=== PATIENT | female | born 1950 | race Two or more races ===

== ENCOUNTER 2025-01-10 02:55 | Inpatient (IN) | payer OTHER, MEDICAID ==
[~2025-01-10] VITALS: Ht 162.6 cm; Wt 87.1 kg
[2025-01-10 03:15] VITALS: PULSE 72; RESP 16; O2SAT 96
[2025-01-10] MEDS: MECLIZINE HCL 25 MG TAB PO ONE (03:43)
--- NOTE | 2025-01-10 03:49 | ED.PDOC ---
HPI (NEURO) HPI Comments 74-year-old female with a history of hypertension and hypercholesterolemia and cigarette smoking now complains of dizziness worse with trying to stand up. This started a couple of days ago. Patient is feeling unsteady on her feet at home in his worried she might fall. Chief Complaint: Dizziness Time Seen by MD: 03:08 Reviewed Notes: Nurses Notes Information Source: Patient Mode of Arrival: EMS Severity: Moderate, Severe Dizziness/Weakness Severity: Unable to do activities Timing: Days Duration: Since onset Past Medical History PAST MEDICAL HISTORY: HTN Surgical History: Denies all surgeries Social History Smoker: Cigarettes Constitutional: reports: malaise, weakness Neurological: reports: dizziness All Other Systems: Reviewed and Negative Physical Exam General Appearance: Moderate Distress HEENT: Normal ENT Inspection, Pharynx Normal, TMs Normal Neck: Full Range of Motion, Non-Tender, Normal, Normal Inspection Respiratory: Chest Non-Tender, Lungs Clear, No Accessory Muscle Use, No Resp iratory Distress, Normal Breath Sounds Cardiovascular: No Edema, No JVD, No Murmur, No Gallop, Normal Peripheral Pulses, Regular Rate/Rhythm Breast Exam: Deferred Gastrointestinal: No Organomegaly, Non Tender, No Pulsatile Mass, Normal Bowel Sounds, Soft Genitalia: Deferred Pelvic: Deferred Rectal: Deferred Extremities: No calf tenderness, Normal capillary refill, Normal inspection, Normal range of motion, Non-tender, No pedal edema Musculoskeletal : Apperance: Normal Neurologic: Alert, education adviser II-XII nml as Tested, No Motor Deficits, Normal Affect, Normal Mood, No Sensory Deficits Cerebellar Function: Normal Reflexes: Normal Skin: Dry, Normal Color, Warm Lymphatic: No Adenopathy Was a procedure done? Was a procedure done?: No Differential Diagnosis (SZ) Seizure: Alcohol Withdrawl, Closed Head Injury, CVA/TIA, Drug Ingestion, Hypoglycemia, Hyponatremia, Idiopathic, Mass Lesion, Syncope, Encephalopathy, Other X-Ray, Labs, Meds, VS Vital Signs Date Time Temp Pulse Resp B/P (MAP) Pulse Ox O2 Delivery O2 Flow Rate FiO2 01/10/25 03:15 97.8 72 16 165/85 (111) 96 97.8 01/10/25 03:15 72 16 96 Room Air* 0 21 01/10/25 03:11 97.3 77 18 157/75 96 97.3 8/19/25 03:03 75 Lab Test 01/10/25 03:26 Range/Units White Blood Count 10.2 4.4-10.8 10^3/uL Red Blood Count 5.10 4.0-5.20 10^6/uL Hemoglobin 14.1 12.2-16.2 g/dL Hematocrit 41.5 36.0-46.0 % Mean Corpuscular Volume 81.3 80.0-100.0 fL Mean Corpuscular Hemoglobin 27.6 L 28.0-32.0 pg Mean Corpuscular Hemoglobin Concent 33.9 32.0-36.0 g/dL Red Cell Distribution Width 16.2 H 11.8-14.3 % Platelet Count 318 140-450 10^3/uL Mean Platelet Volume 10.0 6.9-10.8 fL Neutrophils (%) (Auto) 61.3 37.0-80.0 % Lymphocytes (%) (Auto) 26.2 10.0-50.0 % Monocytes (%) (Auto) 9.0 0.0-12.0 % Eosinophils (%) (Auto) 2.6 0.0-7.0 % Basophils (%) (Auto) 0.9 0.0-2.0 % Neutrophils # (Auto) 6.2 1.6-8.6 10 ^3/uL Lymphocytes # (Auto) 2.7 0.4-5.4 10 ^3/uL Monocytes # (Auto) 0.9 0-1.3 10 ^3/uL Eosinophils # (Auto) 0.3 0-0.8 10 ^3/uL Basophils # (Auto) 0.1 0-0.2 10 ^3/uL Nucleated Red Blood Cells 0.0 % Sodium Level 140 136-145 mmol/L Potassium Level 3.9 3.5-5.1 mmol/L Chloride Level 107 98-107 mmol/L Carbon Dioxide Level 24 20-31 mmol/L Anion Gap 9 5-15 Blood Urea Nitrogen 20 9-23 mg/dL Creatinine 1.32 H 0.550-1.02 mg/dL Glomerular Filtration Rate Calc 43 >90 mL/min BUN/Creatinine Ratio 15.2 10.0-20.0 Serum Glucose 112 H 74-106 mg/dL Calcium Level 9.6 8.7-10.4 mg/dL Magnesium Level 2.2 1.6-2.6 mg/dL Total Bilirubin 0.3 0.2-1.0 mg/dL Aspartate Amino Transferase (AST) 19 13-40 U/L Alanine Aminotransferase (ALT) 15 7-40 U/L Alkaline Phosphatase 150 H 46-116 U/L Troponin I High Sensitivity < 3 L </=34 ng/L Total Protein 6.9 5.7-8.2 g/dL Albumin 4.4 3.2-4.8 g/dL Current Medications Medications (Trade) Dose Ordered Sig/Digna Route Start Time Stop Time Status Last Admin Meclizine HCl (Antivert Tablet) 25 mg ONCE ONCE PO 01/10/25 03:30 01/10/25 03:31 DC 01/10/25 03:43 Time of 1ST Reevaluation: 02:40 Reevaluation 1ST: Unchanged Patient Education/Counseling: Diagnosis, Treatment Family Education/Counseling: No Family Present Departure 1 Departure Time of Disposition: 04:30 Impression: Primary Impression: Vertigo Additional Impression: Acute renal injury Disposition: ADMITTED INPATIENT Condition: Guarded Comments Lab results reviewed. Patient has acute renal injury with creatinine elevated at 1.32. Troponin is normal at less than 3. Patient is still feels unsteady on her feet and dizzy on re-evaluation. Patient will need to be admitted for vertigo and acute renal injury. Critical Care Note Critical Care Time?: Yes (35 min-critical care time only) Critical care comment: Total critical care time: Approximately 36 minutes Due to a high probability of clinically significant, life threatening deterioration, the patient required my highest level of preparedness to intervene emergently and I personally spent this critical care time directly and personally managing the patient. This critical care time included obtaining a history; examining the patient; pulse oximetry; ordering and review of studies; arranging urgent treatment with development of a management plan; evaluation of patient's response to treatment; frequent reassessment; and, discussions with o ther providers. This critical care time was performed to assess and manage the high probability of imminent, life-threatening deterioration that could result in multi-organ failure. It was exclusive of separately billable procedures and treating other patients. Stability Stability form required: No Heart Score Heart Score: Heart Score Response (Comments) Value History Slightly Suspicious 0 EKG Repolarization Disturb 1 Age >65 2 Risk Factors 1 or 2 risk factors 1 Troponin Normal limit 0 Total 4 ZAAFR CARPENTER MD Jan 10, 2025 03:49
--- NOTE | 2025-01-10 03:51 | DVH ---
Indication: vertigo Comparison: None Technique: Utilizing a multislice CT scanner, a CT scan of the brain was performed without intravenou s contrast. Coronal and sagittal reformatted images. All CT scans at this facility use dose modulation, iterative reconstruction, and/or weight based dosi ng when appropriate to reduce radiation dose to as low as reasonably achievable. Findings: There is no acute infarct, intracranial hemorrhage, or mass effect. There is no hydrocephalus or sign ificant midline shift. There is mild chronic microvascular ischemic changes and mild parenchymal volume loss. No acute, depressed calvarial fractures. No large scalp hematomas. Impression: 1. No acute intracranial process.
[2025-01-10 03:57] LABS: Hematocrit 41.5 % (36.0-46.0); Hemoglobin 14.1 g/dL (12.2-16.2); Mean Corpuscular Hemoglobin 27.6 pg (28.0-32.0); Mean Corpuscular Volume 81.3 fL (80.0-100.0); Nucleated Red Blood Cells % 0.0 %
[2025-01-10 04:01] LABS: Alanine Aminotransferase 15 U/L (7-40); Albumin 4.4 g/dL (3.2-4.8); Anion Gap 9 (5-15); BUN/Creatinine Ratio 15.2 (10.0-20.0); Bilirubin, Total 0.3 mg/dL (0.2-1.0); Blood Urea Nitrogen 20 mg/dL (9-23); Calcium 9.6 mg/dL (8.7-10.4); Carbon Dioxide 24 mmol/L (20-31); Magnesium 2.2 mg/dL (1.6-2.6); Potassium 3.9 mmol/L (3.5-5.1); Sodium 140 mmol/L (136-145); Total Protein 6.9 g/dL (5.7-8.2)
[2025-01-10 04:06] LABS: Alkaline Phosphatase 150 U/L (46-116); Chloride 107 mmol/L (98-107); Glucose 112 mg/dL (74-106)
--- NOTE | 2025-01-10 05:38 | ECG ---
[facility] Test Date: 2025-01-10 Test Time: 03:03:36 Pat Name: ASTRID BARGER Department: [facility] ED Patient ID: [id number] Room: [facility]6T Gender: F Teen Counselor: ALLIE : 1950 Requested By: ZAFAR CARPENTER Order Number: [id number] Reading MD: Chi Barr Measurements Intervals [place] Rate: 75 P: 64 TX: 199 QRS: 74 QRSD: 91 T: 53 QT: 384 QTc: 429 Interpretive Statements Sinus rhythm Electronically Signed On 01-10-2025 22:59:43 PDT by Chi Barr Please click the below link to view image of tracing.
[2025-01-10 07:20] VITALS: PULSE 66; RESP 16; O2SAT 97
[2025-01-10] MEDS ORDERED: MECLIZINE HCL 25 MG TAB PO PRN (07:30)
[2025-01-10] MEDS ORDERED: DOCUSATE SOD 100 MG CAP PO PRN (07:30)
[2025-01-10] MEDS ORDERED: MORPHINE SULFATE INJ 2 MG/ml SYRG IV PRN (07:30)
[2025-01-10] MEDS ORDERED: NITROGLYCERIN 0.4 MG SL TAB SL PRN (07:30)
[2025-01-10] MEDS ORDERED: ONDANSETRON HCL 4 MG/2 ML VIAL IV PRN (07:30)
[2025-01-10] MEDS ORDERED: ACETAMINOPHEN 325 MG TAB PO PRN (07:30)
--- NOTE | 2025-01-10 07:33 | DVHHP2 ---
History of Present Illness Reason for Visit: Dizziness History of Present Illness Faiza Fuentes is a 74-year-old female with past medical history hypertension, and hyperlipidemia, who came to the hospital for dizziness. Patient states she has been experiencing intermittent dizziness for about 1 week. She states it started last Thursday, and that it was mild and intermittent. She was able to continue with daily life at first. Her symptoms have progressed and worsened over last few days. Last night it became so severe she was not able to walk around her house prompting her to come to the hospital. Review of Systems Constitutional: No: Fever, Chills, Sweats, Weakness, Malaise, Other Eyes: No: Pain, Vision change, Conjunctivae inflammation, Eyelid inflammation, Other, Redness ENT: No: Ear pain, Ear discharge, Nose pain, Nose discharge, Nose congestion, Mouth pain, Mouth swelling, Throat pain, Throat swelling, Other Respiratory: No: Cough, Dry, Shortness of breath, SOB with excertion, Wheezing, Hemoptysis, Pleuritic Pain, Sputum, Wheezing, Other Cardiovascular: No: Chest Pain, Palpitations, Orthopnea, Paroxysmal Noc. Dyspnea, Edema, Lt Headedness, Other Gastrointestinal: No: Nausea, Vomiting, Abdominal Pain, Diarrhea, Constipation, Melena, Hematochezia, Other Genitourinary: No Dysuria, No Frequency, No Incontinence, No Hematuria, No Retention, No Other Musculoskeletal: No: other, neck pain, shoulder pain, arm pain, back pain, hand pain, leg pain, foot pain Skin: No: Rash, Lesions, Jaundice, Bruising, Other Neurological: Other (Dizziness); No: Weakness, Numbness, Incoordination, Change in speech, Confusion, Seizures Allergies: Coded Allergies: NO KNOWN ALLERGIES (Unverified , 01/10/25) Exam Vital Signs Vital Signs Date Time Temp Pulse Resp B/P (MAP) Pulse Ox O2 Delivery O2 Flow Rate FiO2 01/10/25 06:26 68 22 140/72 (94) 95 01/10/25 03:15 97.8 97.8 01/10/25 03:15 Room Air* 0 21 General Appearance: Alert, Oriented X3, Cooperative, mild distress HEENT: Atraumatic Respiratory: Clear to auscultation, Normal air movement Cardiovascular: Regular rate, Normal S1, Normal S2, No murmurs Abdominal: Normal bowel sounds, Soft, No tenderness, No hepatospenomegaly Extremities: No clubbing, No cyanosis, No edema, Normal pulses Skin: No rashes, No breakdown, No significant lesion Neuro: Normal gait, Normal speech, Strength at 5/5 X4 ext, Normal tone Psych/Mental Status: Mental status NL, Mood NL Labs/Xrays Labs Test 01/10/25 06:25 01/10/25 03:26 Range/Units Troponin I High Sensitivity 3 L </=34 ng/L White Blood Count 10.2 4.4-10.8 10^3/uL Red Blood Count 5.10 4.0-5.20 10^6/uL Hemoglobin 14.1 12.2-16.2 g/dL Hematocrit 41.5 36.0-46.0 % Mean Corpuscular Volume 81.3 80.0-100.0 fL Mean Corpuscular Hemoglobin 27.6 L 28.0-32.0 pg Mean Corpuscular Hemoglobin Concent 33.9 32.0-36.0 g/dL Red Cell Distribution Width 16.2 H 11.8-14.3 % Platelet Count 318 140-450 10^3/uL Mean Platelet Volume 10.0 6.9-10.8 fL Neutrophils (%) (Auto) 61.3 37.0-80.0 % Lymphocytes (%) (Auto) 26.2 10.0-50.0 % Monocytes (%) (Auto) 9.0 0.0-12.0 % Eosinophils (%) (Auto) 2.6 0.0-7.0 % Basophils (%) (Auto) 0.9 0.0-2.0 % Neutrophils # (Auto) 6.2 1.6-8.6 10 ^3/uL Lymphocytes # (Auto) 2.7 0.4-5.4 10 ^3/uL Monocytes # (Auto) 0.9 0-1.3 10 ^3/uL Eosinophils # (Auto) 0.3 0-0.8 10 ^3/uL Basophils # (Auto) 0.1 0-0.2 10 ^3/uL Nucleated Red Blood Cells 0.0 % Sodium Level 140 136-145 mmol/L Potassium Level 3.9 3.5-5.1 mmol/L Chloride Level 107 98-107 mmol/L Carbon Dioxide Level 24 20-31 mmol/L Anion Gap 9 5-15 Blood Urea Nitrogen 20 9-23 mg/dL Creatinine 1.32 H 0.550-1.02 mg/dL Glomerular Filtration Rate Calc 43 >90 mL/min BUN/Creatinine Ratio 15.2 10.0-20.0 Serum Glucose 112 H 74-106 mg/dL Calcium Level 9.6 8.7-10.4 mg/dL Magnesium Level 2.2 1.6-2.6 mg/dL Total Bilirubin 0.3 0.2-1.0 mg/dL Aspartate Amino Transferase (AST) 19 13-40 U/L Alanine Aminotransferase (ALT) 15 7-40 U/L Alkaline Phosphatase 150 H 46-116 U/L Total Protein 6.9 5.7-8.2 g/dL Albumin 4.4 3.2-4.8 g/dL CT scan of the brain was performed without intravenous contrast. Findings: There is no acute infarct, intracranial hemorrhage, or mass effect. There is no hydrocephalus or significant midline shift. There is mild chronic microvascular ischemic changes and mild parenchymal volume loss. No acute, depressed calvarial fractures. No large scalp hematomas. Impression: 1. No acute intracranial process. SEPSIS Sepsis Screen Date sepsis recognized/suspect: Jan 10, 2025 Time Sepsis recognized/suspect: 033 Recent Procedure: No On Antibiotic Therapy: No Respiratory Rate >20: No Heart Rate >90: No Temp<36 C (96.8 F) or >38.3 C: No SBP <90 or MAP <65 mmHG: No New Acute Mental Status Change: No Is the patient on CPAP, BIPAP,: No Physician Orders Head Without Contrast (01/10/25 03:19) Vital Signs Date Time Temp Pulse Resp B/P (MAP) Pulse Ox O2 Delivery O2 Flow Rate FiO2 01/10/25 06:26 68 22 140/72 (94) 95 01/10/25 05:00 72 14 130/68 (88) 93 01/10/25 03:15 97.8 72 16 165/85 (111) 96 97.8 01/10/25 03:15 72 16 96 Room Air* 0 21 01/10/25 03:11 97.3 77 18 157/75 96 97.3 01/10/25 03:03 75 Laboratory Tests Test 01/10/25 03:26 White Blood Count 10.2 10^3/uL (4.4-10.8) Medications Medications Dose Ordered Sig/Digna Route Start Time Stop Time Status Last Admin Dose Admin Meclizine HCl 25 mg ONCE ONCE PO 01/10/25 03:30 01/10/25 03:31 DC 01/10/25 03:43 25 MG Assessment/Plan Assessment/Plan Assessment: Vertigo, Acute kidney injury, Dehydration, Hypertension, Hyperlipidemia, Plan: Admit to Tele, Neurology consult, IV hydration, PRN meclizine, TSH, Home mediations reconciled, Plan discussed with: Patient Date of Service: Jan 10, 2025 Billing Provider: GOMEZ BOLTON Common Visit Codes: [id number] INP/OBS CARE (MOD) GOMEZ BOLTON Jan 10, 2025 07:32
[2025-01-10] MEDS: SODIUM CHLORIDE 0.9% 1,000 ML IV ONE (08:05)
[2025-01-10 12:00] VITALS: PULSE 66; PULSE 74; RESP 16; O2SAT 97
--- NOTE | 2025-01-10 19:50 | DVHINCON2 ---
Date of service: Jan 10, 2025 Referring Physician Perla Reason for Consultation Dizziness History of Present Illness Ms. Fuentes is a 74 years old right-handed female with a history of hypertension, diabetes, dyslipidemia, chronic low back pain, obesity, she came to the [facility] on 01/10/2025 with a chief complaint of dizziness, at that time, she is alert and fully oriented, she provided the following history On 01/04/25, 01/05/2025, she has a spells of intense dizziness where since moving around her, with a feeling of falling down, unsteadiness. Again since 02/09/2025, she has similar event. This event happened when she is walking without head movement, or when she is getting out of bed. She denies similar problems previously, she has no associated hearing change, focal weakness nu mbness Coincidentally after the fall in 2022, she has constant intense stabbing pain in the low back, at times the pain radiated to the back of the right lower extremity to it reach the cup. She had MRI scan which showed disc disease, she had chiropractic treatment previously CC/HB/PLT/MCV, 01/10/2025: 10.06/1420/318/81.3 BUN/CR, 01/10/25: 20/1.32 [employer], 01/10/2025: 43 TSH, 01/10/25: 0.26 CT head, 01/10/25: No acute intracranial process Past Medical History Hypertension, dyslipidemia, diabetes, chronic low back pain Past Surgical History Family History Hypertension, diabetes, longevity Social History She smokes, but she denies a history of drug or alcohol abuse Allergies: Coded Allergies: NO KNOWN ALLERGIES (Unverified , 01/10/25) Current Medications Current Medications Medications (Trade) Dose Ordered Sig/Digna Route PRN Reason Start Time Stop Time Status Last Admin Acetaminophen/ Hydrocodone Bitart (Marne 5/325MG Tab) 1 tab Q4HP PRN PO MODERATE PAIN (4-6 PAIN SCALE) 01/10/25 07:30 Ondansetron HCl (Zofran) 4 mg Q4HP PRN IV NAUSEA / VOMITING 01/10/25 07:30 Docusate Sodium (Colace Capsule) 100 mg BIDPRN PRN PO FOR CONSTIPATION 01/10/25 07:30 Acetaminophen (Tylenol Tablet) 650 mg Q6HP PRN PO PAIN SCALE 1-3 OR TEMP>100.4 01/10/25 07:30 Nitroglycerin (Ntrostat Sublingual) 0.4 mg Q5MINP PRN SL FOR CHEST PAIN 01/10/25 07:30 Morphine Sulfate 2 mg Q30M PRN IV FOR CHEST PAIN 01/10/25 07:30 Meclizine HCl (Antivert Tablet) 25 mg Q8HPRN PRN PO DIZZINESS 01/10/25 07:30 Review of Systems As above, the other systems are negative Vital Signs Vital Signs Date Time Temp Pulse Resp B/P (MAP) Pulse Ox O2 Delivery O2 Flow Rate FiO2 01/10/25 19:43 67 23 135/70 (91) 93 01/10/25 12:00 Room Air* 0 21 01/10/25 11:23 98.2 98.2 Physical Exam GENERAL EXAM: General: the patient is well developed and nourished. No acute distress. HEENT: Normocephalic, neck is supple, no carotid bruits. No mass. RESPIRATORY: Normal respiratory effort with symmetrical lung expansion. Lungs clear to auscultation. CARDIOVASCULAR: Regular rate and rhythm with no murmurs. S1, S2. ABDOMEN: Soft, nontender, normal bowel sound MUSCULOSKELETAL EXAM: Tenderness to palpation in the low back NEUROLOGICAL: MENTAL STATUS: Awake and alert. Oriented to person, place, time and general circumstances. Able to give personal history. SPEECH, LANGUAGE, HIGHER CORTICAL FUNCTION: no aphasia or dysathria. CRANIAL NERVES: #2: Intact visual stovall to confrontation. The optic discs were sharp. #3,4,6: Pupils are equal, round and reactive. EOMs full and conjugate. No nystagmus. #5: Facial sensation intact in all three divisions bilaterally. Mandibular strength intact. #7: Facial muscles symmetrical and strength intact. #8: Hearing grossly normal to voice. #9,10: Uvula and soft palate rise in the midline. Swallow and voice are normal. #11: Trapezius and sternomastoid strength intact bilaterally. #12: Tongue midline. No fasciculations or atrophy. SENSATION: Sensation to touch and pinprick is normal. MOTOR: Normal tone in the upper and lower extremity. Normal muscle bulk. No fasciculations. No abnormal movements or posturing. Muscle strength of the major groups in the upper extremities is 5/5. Muscle strength of the major groups in the lower extremities is 5/5. REFLEXES: Deep tendon reflexes are symmetrical. No pathological reflexes. CEREBELLAR/COORDINATION: Finger to nose is normal bilaterally. GAIT/STATION: deferred. Labs/Diagnostic Data Labs Test 01/10/25 06:25 01/10/25 04:30 01/10/25 03:26 Range/Units Troponin I High Sensitivity 3 L </=34 ng/L Thyroid Stimulating Hormone (TSH) 0.26 L 0.55-4.78 uIU/mL White Blood Count 10.2 4.4-10.8 10^3/uL Red Blood Count 5.10 4.0-5.20 10^6/uL Hemoglobin 14.1 12.2-16.2 g/dL Hematocrit 41.5 36.0-46.0 % Mean Corpuscular Volume 81.3 80.0-100.0 fL Mean Corpuscular Hemoglobin 27.6 L 28.0-32.0 pg Mean Corpuscular Hemoglobin Concent 33.9 32.0-36.0 g/dL Red Cell Distribution Width 16.2 H 11.8-14.3 % Platelet Count 318 140-450 10^3/uL Mean Platelet Volume 10.0 6.9-10.8 fL Neutrophils (%) (Auto) 61.3 37.0-80.0 % Lymphocytes (%) (Auto) 26.2 10.0-50.0 % Monocytes (%) (Auto) 9.0 0.0-12.0 % Eosinophils (%) (Auto) 2.6 0.0-7.0 % Basophils (%) (Auto) 0.9 0.0-2.0 % Neutrophils # (Auto) 6.2 1.6-8.6 10 ^3/uL Lymphocytes # (Auto) 2.7 0.4-5.4 10 ^3/uL Monocytes # (Auto) 0.9 0-1.3 10 ^3/uL Eosinophils # (Auto) 0.3 0-0.8 10 ^3/uL Basophils # (Auto) 0.1 0-0.2 10 ^3/uL Nucleated Red Blood Cells 0.0 % Sodium Level 140 136-145 mmol/L Potassium Level 3.9 3.5-5.1 mmol/L Chloride Level 107 98-107 mmol/L Carbon Dioxide Level 24 20-31 mmol/L Anion Gap 9 5-15 Blood Urea Nitrogen 20 9-23 mg/dL Creatinine 1.32 H 0.550-1.02 mg/dL Glomerular Filtration Rate Calc 43 >90 mL/min BUN/Creatinine Ratio 15.2 10.0-20.0 Serum Glucose 112 H 74-106 mg/dL Calcium Level 9.6 8.7-10.4 mg/dL Magnesium Level 2.2 1.6-2.6 mg/dL Total Bilirubin 0.3 0.2-1.0 mg/dL Aspartate Amino Transferase (AST) 19 13-40 U/L Alanine Aminotransferase (ALT) 15 7-40 U/L Alkaline Phosphatase 150 H 46-116 U/L Total Protein 6.9 5.7-8.2 g/dL Albumin 4.4 3.2-4.8 g/dL Assessment Acute dizziness/vertigo spells Likely she has benign paroxysmal positional vertigo Chronic low back pain Right S1 radiculopathy Plan/Recommendation Monitoring Supportive treatment Okay to use meclizine p.r.n. but not recommend long-term usage Current pain management Follow up with me or her family doctor on discharge to further address her dizziness/vertigo Reading material recommended to the patient Progress: Poor This medical document was created using an electronic medical record system with [employer] dictation system. Although this document has been carefully reviewed, there may still be some phonetic and typographical errors. These areas are purely typographical due to imperfections of the software programs, and do not reflect any compromise in the patient's medical care. Plan discussed with: Patient, Other TIARA STEELE MD Jan 10, 2025 19:50
[2025-01-10 20:14] VITALS: PULSE 66; RESP 15; O2SAT 97
[2025-01-10] MEDS: HYDROcodone-ACET 5/325MG TAB PO PRN (23:11)
[2025-01-10 23:15] VITALS: BP 143/82; PULSE 74; RESP 18; TEMP 98.4; O2SAT 99
[2025-01-11] VITALS (9 sets, daily range): BP systolic 125–177; BP diastolic 81–92; PULSE 73–88; RESP 16–20; TEMP 97.4–98.5; O2SAT 16–98
[2025-01-11] MEDS ORDERED: HYDR25TA5 PO (00:27)
[2025-01-11] MEDS ORDERED: ASPI81CH59 PO (00:27)
[2025-01-11] MEDS ORDERED: ATOR20TA50 (00:27)
[2025-01-11] MEDS ORDERED: LOSA-535 PO (00:27)
[2025-01-11 06:44] LABS: Alanine Aminotransferase 16 U/L (7-40); Albumin 4.1 g/dL (3.2-4.8); Anion Gap 8 (5-15); BUN/Creatinine Ratio 17.3 (10.0-20.0); Blood Urea Nitrogen 23 mg/dL (9-23); Calcium 9.3 mg/dL (8.7-10.4); Carbon Dioxide 26 mmol/L (20-31); Chloride 107 mmol/L (98-107); Potassium 4.3 mmol/L (3.5-5.1); Sodium 141 mmol/L (136-145); Total Protein 6.4 g/dL (5.7-8.2)
[2025-01-11 06:45] LABS: Free T3 2.83 pg/mL (2.3-4.2)
[2025-01-11 06:46] LABS: Free T4 (Free Thyroxine) 1.07 ng/dL (0.89-1.76)
[2025-01-11 06:59] LABS: Alkaline Phosphatase 129 U/L (46-116); Bilirubin, Total 0.2 mg/dL (0.2-1.0); Glucose 129 mg/dL (74-106)
[2025-01-11 07:02] LABS: Hematocrit 38.4 % (36.0-46.0); Hemoglobin 12.9 g/dL (12.2-16.2); Mean Corpuscular Hemoglobin 27.4 pg (28.0-32.0); Mean Corpuscular Volume 81.8 fL (80.0-100.0); Nucleated Red Blood Cells % 0.0 %
--- NOTE | 2025-01-11 09:08 | DVHPN2 ---
Progress Note - Dictate Date Seen: Jan 11, 2025 Medical Necessity Reason Pt with a Central, PICC or Fol: No Subjective Ms. Fuentes is a 74 years old right-handed female with a history of hypertension, diabetes, dyslipidemia, chronic low back pain, obesity, she came to the [facility] on 01/10/2025 with a chief complaint of dizziness I have seen examined the patient, talked to her nurse and discussed with Rick, he reports no vertigo/spinning sensation in the hospital, but she still has some dizziness and discomfort in bifrontal vision around the eyes I tried to help her to get up from the bed and lying back, bending and reason her head, none of this activity triggered a vertigo, instead she reports intense whole back pain during these activities WBC/HB/PLT/MCV, 01/10/2025: 10.06/1420/318/81.3 BUN/CR, 01/10/25: 20/1.32 [employer], 01/10/2025: 43 TSH, 01/10/25: 0.26 CT head, 01/10/25: No acute intracranial process vital signs Vital Sign Date Time Temp Pulse Resp B/P (MAP) Pulse Ox O2 Delivery O2 Flow Rate FiO2 01/11/25 08:56 97.4 83 20 146/85 (105) 97 97.4 01/10/25 23:15 Room Air* 0 21 Total Intake and Output 01/10/25 01/10/25 01/11/25 15:00 23:00 07:00 Intake Total 1000 ml 250 ml Balance 1000 ml 250 ml medications Current Medications Medications Dose Ordered Sig/Digna Route Start Time Stop Time Status Last Admin Dose Admin Acetaminophen/ Hydrocodone Bitart 1 tab Q4HP PRN PO 01/10/25 07:30 01/10/25 23:11 1 TAB Ondansetron HCl 4 mg Q4HP PRN IV 01/10/25 07:30 Docusate Sodium 100 mg BIDPRN PRN PO 01/10/25 07:30 Acetaminophen 650 mg Q6HP PRN PO 01/10/25 07:30 Nitroglycerin 0.4 mg Q5MINP PRN SL 01/10/25 07:30 Morphine Sulfate 2 mg Q30M PRN IV 01/10/25 07:30 Meclizine HCl 25 mg Q8HPRN PRN PO 01/10/25 07:30 objective General: the patient is well developed and nourished. No acute distress. MENTAL STATUS: Alert and fully oriented SPEECH, LANGUAGE, HIGHER CORTICAL FUNCTION: no aphasia or dysathria. CRANIAL NERVES: Pupils are equal, round and reactive. EOMs full and conjugate. No nystagmus. Facial sensation intact in all three divisions bilaterally. Mandibular strength intact. Facial muscles symmetrical and strength intact. Tongue midline. No fasciculations or atrophy. SENSATION: Sensation to touch and pinprick is normal. MOTOR: Normal tone in the upper and lower extremity. Normal muscle bulk. No fasciculations. No abnormal movements or posturing. Muscle strength of the major groups in the extremities is 5/5. REFLEXES: Deep tendon reflexes are symmetrical. No pathological reflexes. CEREBELLAR/COORDINATION: Finger to nose is normal bilaterally. GAIT/STATION: deferred. laboratory and microbiology Laboratory Tests 01/11/25 05:31 Test 01/11/25 05:31 Range/Units Serum Glucose 129 H 74-106 mg/dL Problem List Acute dizziness/vertigo spells ? Benign paroxysmal positional vertigo Rule out on etiology Chronic low back pain Right S1 radiculopathy Assessment/Plan Monitoring Supportive treatment MRI head Okay to use meclizine p.r.n. but not recommend long-term usage Current pain management Follow up with me or her family doctor on discharge to further address her dizziness/vertigo Reading material recommended to the patient This medical document was created using an electronic medical record system with [employer] dictation system. Although this document has been carefully reviewed, there may still be some phonetic and typographical errors. These areas are purely typographical due to imperfections of the software programs, and do not reflect any compromise in the patient's medical care. Prognosis poor Plan discussed with: Patient, Other Total Time (mins): 35 TIARA STEELE MD Jan 11, 2025 09:08
[2025-01-11] MEDS ORDERED: SODIUM CHLORIDE 0.9% 1,000 ML IV SCH (10:00)
--- NOTE | 2025-01-11 10:04 | DVHPN2 ---
Subjective Patient continues to report having dizziness. Reviewed: Care Plan, H&P, Labs, Medications Changes from previous H/P or p: No Changes Eyes: No Pain, No Vision change, No Conjunctivae inflammation, No Eyelid inflammation, No Other, No Redness ENT: No Ear pain, No Ear discharge, No Nose pain, No Nose discharge, No Nose congestion, No Mouth pain, No Mouth swelling, No Throat pain, No Throat swelling, No Other Cardiovascular: No Chest Pain, No Palpitations, No Orthopnea, No Paroxysmal Noc. Dyspnea, No Edema, No Lt Headedness, No Other Respiratory: No Cough, No Dry, No Shortness of breath, No SOB with excertion, No Wheezing, No Hemoptysis, No Pleuritic Pain, No Sputum, No Other Gastrointestinal: No Nausea, No Vomiting, No Abdominal Pain, No Diarrhea, No Constipation, No Melena, No Hematochezia, No Other Genitourinary: No Dysuria, No Frequency, No Incontinence, No Hematuria, No Retention, No Other Musculoskeletal: No other, No neck pain, No shoulder pain, No arm pain, No back pain, No hand pain, No leg pain, No foot pain Skin: No Rash, No Lesions, No Jaundice, No Bruising, No Other Objective Vitals Vital Signs Date Time Temp Pulse Resp B/P (MAP) Pulse Ox O2 Delivery O2 Flow Rate FiO2 01/11/25 08:56 97.4 83 20 146/85 (105) 97 97.4 01/10/25 23:15 Room Air* 0 21 Intake/Output Intake and Output 01/11/25 07:00 Intake Total 1250 ml Balance 1250 ml Intake Oral 250 ml IV Total 1000 ml # Voids 1 General Appearance: Alert, Oriented X3, Cooperative, No acute distress HEENT: Atraumatic, PERRLA Cardiovascular: Normal S1, Normal S2 Abdomen: Normal bowel sounds, Soft, No tenderness, No hepatospenomegaly, No masses Genitourinary: No Apparent Abnormalities Musculoskeletal: Normal sensory function Neuro: Normal gait, Normal speech Skin: Dry, Intact Psych/Mental Status: Mental status NL, Mood NL Medications Current Medications Medications Dose Ordered Sig/Digna Route Start Time Stop Time Status Last Admin Dose Admin Acetaminophen/ Hydrocodone Bitart 1 tab Q4HP PRN PO 01/10/25 07:30 01/10/25 23:11 1 TAB Ondansetron HCl 4 mg Q4HP PRN IV 01/10/25 07:30 Docusate Sodium 100 mg BIDPRN PRN PO 01/10/25 07:30 Acetaminophen 650 mg Q6HP PRN PO 01/10/25 07:30 Nitroglycerin 0.4 mg Q5MINP PRN SL 01/10/25 07:30 Morphine Sulfate 2 mg Q30M PRN IV 01/10/25 07:30 Meclizine HCl 25 mg Q8HPRN PRN PO 01/10/25 07:30 Sodium Chloride 1,000 ml @ 60 mls/hr [id number] IV 01/11/25 10:00 UNV Laboratory Results Laboratory Tests 01/11/25 05:31 Chemistry Test 01/11/25 05:31 Albumin 4.1 g/dL (3.2-4.8) Calcium Level 9.3 mg/dL (8.7-10.4) Total Protein 6.4 g/dL (5.7-8.2) LFT Test 01/11/25 05:31 Alanine Aminotransferase (ALT) 16 U/L (7-40) Alkaline Phosphatase 129 U/L (46-116) H Aspartate Amino Transferase (AST) 17 U/L (13-40) Total Bilirubin 0.2 mg/dL (0.2-1.0) HgA1c, TSH Test 01/11/25 05:31 Thyroid Stimulating Hormone (TSH) 0.20 uIU/mL (0.55-4.78) L Labs and/or images reviewed: Labs reviewed by me, Image(s) reviewed by me Assessment/Plan Assessment/Plan Impression: -rule out BPPV -rule out CVA -CKD stage IIIB -questionable dehydration -primary hypertension -dyslipidemia -obesity Plan: -neurology consultation: Discussed case with doctors, MRI pending -meclizine p.r.n. -gentle IV hydration -orthostatic blood pressures -physical therapy -provide patient literature on exercises for BPPV Total time spent with patient discussing and formulating plan of care: 35 minutes. This medical document was created using an electronic medical record system with [employer] dictation system. Although this document has been carefully reviewed, there may still be some phonetic and typographical errors. These areas are purely typographical due to imperfections of the software programs, and do not reflect any compromise in the patient's medical care. Plan discussed with: Patient, Other (RN) My Orders Orders - EDWAR DELVALLE NP Procedure Category Date Status Time Sodium Chloride 0.9% PHA 01/11/25 Logged 10:00 Communication Order ORDERS 01/11/25 Transmitted 09:55 Urinalysis LAB 01/11/25 Logged 09:56 Orthostatic Vital ORDERS 01/11/25 Verified Signs 10:01 Date of Service: Jan 11, 2025 Billing Provider: EDWAR DELVALLE NP Common Visit Codes: [id number] INP/OBS CARE(HIGH) EDWAR DELVALLE NP Jan 11, 2025 10:04
[2025-01-11] MEDS ORDERED: LORazepam 2MG/ML-1ML VIAL IV PRN (11:00)
--- NOTE | 2025-01-11 13:48 | DVH ---
EXAMINATION: MRI BRAIN HEAD WO CONTRAST INDICATION: Acute vertigo COMPARISON: CT HEAD WITHOUT CONTRAST on DOS: 01/10/25 TECHNIQUE: Multiplanar, multisequence magnetic resonance imaging of the brain was performed without the use of i ntravenous contrast. FINDINGS: No evidence of acute or remote infarct. No intracranial hemorrhage. No mass effect. There is periventricular/deep white matter T2/FLAIR hyperintensity is nonspecific, but most commonly associated with chronic microvascular disease. The ventricles and sulci are normal in size for age. Clear basal cisterns. Flow voids in the major intracranial vessels are maintained. No abnormality of the orbits. Paranasal sinuses and mastoid air cells are clear. No abnormality of the visualized osseous structures and extracranial soft tissues. IMPRESSION: No acute infarct, intracranial hemorrhage, mass effect, or hydrocephalus.
[2025-01-11 18:03] LABS: Urine Protein, UAD Negative (Negative)
[2025-01-12] VITALS (7 sets, daily range): BP systolic 136–148; BP diastolic 73–90; PULSE 62–79; RESP 17–18; TEMP 97.3–98.9; O2SAT 96–99
--- NOTE | 2025-01-12 13:21 | DVHPN2 ---
Subjective Patient continues to report having dizziness. Reviewed: Care Plan, H&P, Labs, Medications Changes from previous H/P or p: No Changes Eyes: No Pain, No Vision change, No Conjunctivae inflammation, No Eyelid inflammation, No Other, No Redness ENT: No Ear pain, No Ear discharge, No Nose pain, No Nose discharge, No Nose congestion, No Mouth pain, No Mouth swelling, No Throat pain, No Throat swelling, No Other Cardiovascular: No Chest Pain, No Palpitations, No Orthopnea, No Paroxysmal Noc. Dyspnea, No Edema, No Lt Headedness, No Other Respiratory: No Cough, No Dry, No Shortness of breath, No SOB with excertion, No Wheezing, No Hemoptysis, No Pleuritic Pain, No Sputum, No Other Gastrointestinal: No Nausea, No Vomiting, No Abdominal Pain, No Diarrhea, No Constipation, No Melena, No Hematochezia, No Other Genitourinary: No Dysuria, No Frequency, No Incontinence, No Hematuria, No Retention, No Other Musculoskeletal: No other, No neck pain, No shoulder pain, No arm pain, No back pain, No hand pain, No leg pain, No foot pain Skin: No Rash, No Lesions, No Jaundice, No Bruising, No Other Objective Vitals Vital Signs Date Time Temp Pulse Resp B/P (MAP) Pulse Ox O2 Delivery O2 Flow Rate FiO2 01/12/25 08:00 79 01/12/25 08:00 18 98 Room Air* 0 21 01/12/25 05:00 97.7 136/78 (97) 97.7 Intake/Output Intake and Output 01/12/25 07:00 Intake Total 420 ml Output Total 1000 ml Balance -580 ml Intake Oral 420 ml Output Urine Total 1000 ml # Voids 1 # Bowel Movements 1 General Appearance: Alert, Oriented X3, Cooperative, No acute distress HEENT: Atraumatic, PERRLA Cardiovascular: Normal S1, Normal S2 Abdomen: Normal bowel sounds, Soft, No tenderness, No hepatospenomegaly, No masses Genitourinary: No Apparent Abnormalities Musculoskeletal: Normal sensory function Neuro: Normal gait, Normal speech Skin: Dry, Intact Psych/Mental Status: Mental status NL, Mood NL Medications Current Medications Medications Dose Ordered Sig/Digna Route Start Time Stop Time Status Last Admin Dose Admin Acetaminophen/ Hydrocodone Bitart 1 tab Q4HP PRN PO 01/10/25 07:30 8/20/25 21:38 1 TAB Ondansetron HCl 4 mg Q4HP PRN IV 01/10/25 07:30 Docusate Sodium 100 mg BIDPRN PRN PO 01/10/25 07:30 Acetaminophen 650 mg Q6HP PRN PO 01/10/25 07:30 Nitroglycerin 0.4 mg Q5MINP PRN SL 01/10/25 07:30 Morphine Sulfate 2 mg Q30M PRN IV 01/10/25 07:30 Meclizine HCl 25 mg Q8HPRN PRN PO 01/10/25 07:30 Sodium Chloride 1,000 ml @ 60 mls/hr [id number] IV 01/11/25 10:00 Lorazepam 1 mg ONCE PRN IV 01/11/25 11:00 Laboratory Results Laboratory Tests 01/11/25 05:31 Urinalysis Test 01/11/25 17:00 Urine Color Light-yellow (Yellow) Urine Clarity Clear (Clear) Urine pH 6.0 (5.0-9.0) Urine Specific [place] 1.020 (1.001-1.035) Urine Protein Negative (Negative) Urine Ketones Negative (Negative) Urine Blood Negative /uL (Negative) Urine Nitrite Negative (Negative) Urine Bilirubin Negative (Negative) Urine Urobilinogen Normal mg/dL (Negative) Urine Leukocyte Esterase Negative /uL (Negative) Urine RBC 1 /hpf (0 - 4) Urine Microscopic WBC 1 /HPF (0-5) Urine Squamous Epithelial Cells Few /hpf (<5) Urine Bacteria None seen /hpf (None Seen) Urine Glucose 1+ mg/dL (Normal) H Labs and/or images reviewed: Labs reviewed by me, Image(s) reviewed by me Assessment/Plan Assessment/Plan Impression: -rule out BPPV -rule out CVA -CKD stage IIIB -questionable dehydration -primary hypertension -dyslipidemia -obesity Plan: Events: No events overnight. MRI negative for any acute intracranial pathology. Patient reporting fullness around orbital area. Also reports having right ear pain. -start Augmentin 875 mg p.o. b.i.d. -Debrox to right ear -neurology consultation: Discussed case with doctors, MRI reviewed -meclizine p.r.n. -gentle IV hydration -orthostatic blood pressures -physical therapy -provide patient literature on exercises for BPPV Total time spent with patient discussing and formulating plan of care: 35 minutes. This medical document was created using an electronic medical record system with [employer] dictation system. Although this document has been carefully reviewed, there may still be some phonetic and typographical errors. These areas are purely typographical due to imperfections of the software programs, and do not reflect any compromise in the patient's medical care. Plan discussed with: Patient, Other (RN) Date of Service: Jan 12, 2025 Billing Provider: EDWAR DELVALLE NP Common Visit Codes: [id number] INP/OBS CARE(HIGH) EDWAR DELVALLE NP Jan 12, 2025 13:21
--- NOTE | 2025-01-12 22:37 | DVHPN2 ---
Progress Note - Dictate Date Seen: Jan 12, 2025 Medical Necessity Reason Pt with a Central, PICC or Fol: No Subjective Ms. Fuentes is a 74 years old right-handed female with a history of hypertension, diabetes, dyslipidemia, chronic low back pain, obesity, she came to the [facility] on 01/10/2025 with a chief complaint of dizziness I have seen examined the patient, talked to her nurse. She reports no dizziness/spinning sensation today all day long no matter she was still or active WBC/HB/PLT/MCV, 01/10/2025: 10.06/1420/318/81.3 BUN/CR, 01/10/25: 20/1.32 [employer], 01/10/2025: 43 TSH, 01/10/25: 0.26 CT head, 01/10/25: No acute intracranial process MRI brain, 01/11/2025: No acute infarct, intracranial hemorrhage, mass effect, or hydrocephalu vital signs Vital Sign Date Time Temp Pulse Resp B/P (MAP) Pulse Ox O2 Delivery O2 Flow Rate FiO2 01/12/25 21:00 97.5 73 18 137/75 (95) 97 97.5 01/12/25 08:00 Room Air* 0 21 Total Intake and Output 01/11/25 01/11/25 01/12/25 15:00 23:00 07:00 Intake Total 300 ml 120 ml Output Total 1000 ml Balance -700 ml 120 ml medications Current Medications Medications Dose Ordered Sig/Digna Route Start Time Stop Time Status Last Admin Dose Admin Acetaminophen/ Hydrocodone Bitart 1 tab Q4HP PRN PO 01/10/25 07:30 01/12/25 20:41 1 TAB Ondansetron HCl 4 mg Q4HP PRN IV 01/10/25 07:30 Docusate Sodium 100 mg BIDPRN PRN PO 01/10/25 07:30 Acetaminophen 650 mg Q6HP PRN PO 01/10/25 07:30 Nitroglycerin 0.4 mg Q5MINP PRN SL 01/10/25 07:30 Morphine Sulfate 2 mg Q30M PRN IV 01/10/25 07:30 Meclizine HCl 25 mg Q8HPRN PRN PO 01/10/25 07:30 Lorazepam 1 mg ONCE PRN IV 01/11/25 11:00 Amoxicillin/ Clavulanate Potassium 875 mg Q12HR PO 01/12/25 22:00 Carbamide Peroxide 5 drop Q12HR RIGHT EAR 01/12/25 22:00 Amlodipine Besylate 10 mg DAILY PO 01/12/25 13:30 01/12/25 15:16 10 MG objective General: the patient is well developed and nourished. No acute distress. MENTAL STATUS: Alert and fully oriented SPEECH, LANGUAGE, HIGHER CORTICAL FUNCTION: no aphasia or dysathria. CRANIAL NERVES: Pupils are equal, round and reactive. EOMs full and conjugate. No nystagmus. Facial sensation intact in all three divisions bilaterally. Mandibular strength intact. Facial muscles symmetrical and strength intact. Tongue midline. No fasciculations or atrophy. SENSATION: Sensation to touch and pinprick is normal. MOTOR: Normal tone in the upper and lower extremity. Normal muscle bulk. No fasciculations. No abnormal movements or posturing. Muscle strength of the major groups in the extremities is 5/5. REFLEXES: Deep tendon reflexes are symmetrical. No pathological reflexes. CEREBELLAR/COORDINATION: Finger to nose is normal bilaterally. GAIT/STATION: deferred. laboratory and microbiology Laboratory Tests 01/11/25 05:31 Test 01/11/25 05:31 Range/Units Serum Glucose 129 H 74-106 mg/dL Problem List Acute dizziness/vertigo spells ? Benign paroxysmal positional vertigo Rule out on etiology Chronic low back pain Right S1 radiculopathy Assessment/Plan Monitoring Supportive treatment Okay to use meclizine p.r.n. but not recommend long-term usage Current pain management Follow up with me or her family doctor on discharge to further address her dizziness/vertigo Okay to discharge from a neurologic point of view This medical document was created using an electronic medical record system with [employer] dictation system. Although this document has been carefully reviewed, there may still be some phonetic and typographical errors. These areas are purely typographical due to imperfections of the software programs, and do not reflect any compromise in the patient's medical care. Prognosis poor Plan discussed with: Patient, Other TIARA STEELE MD Jan 12, 2025 22:37
[2025-01-12] MEDS: CARBAMIDE PEROXIDE 6.5% OTIC(EAR) SOLN 15ML RIGHT EAR SCH (22:51)
[2025-01-12] MEDS: AMOXICILLIN/CLAVUL 875 MG TAB PO SCH (22:52)
[2025-01-13] VITALS (7 sets, daily range): BP systolic 131–144; BP diastolic 76–82; PULSE 71–78; RESP 18–20; TEMP 97.7–98.6; O2SAT 96–98
[2025-01-13] MEDS ORDERED: CARB6.5S44 OT (11:52)
--- NOTE | 2025-01-13 14:00 | DVHDS2 ---
Discharge Summary Date of Admission Jan 10, 2025 at 07:25 Date of Discharge: Jan 13, 2025 Admitting Diagnosis Dizziness Labs/Diagnostic Data: Laboratory Results Test 01/12/25 12:11 01/11/25 17:00 01/11/25 05:31 01/10/25 06:25 POC Glucose 139 mg/dl (70-106) Urine Color Light-yellow (Yellow) Urine Clarity Clear (Clear) Urine pH 6.0 (5.0-9.0) Urine Specific [place] 1.020 (1.001-1.035) Urine Protein Negative (Negative) Urine Ketones Negative (Negative) Urine Blood Negative /uL (Negative) Urine Nitrite Negative (Negative) Urine Bilirubin Negative (Negative) Urine Urobilinogen Normal mg/dL (Negative) Urine Leukocyte Esterase Negative /uL (Negative) Urine RBC 1 /hpf (0 - 4) Urine Microscopic WBC 1 /HPF (0-5) Urine Squamous Epithelial Cells Few /hpf (<5) Urine Bacteria None seen /hpf (None Seen) Urine Glucose 1+ mg/dL (Normal) White Blood Count 8.4 10^3/uL (4.4-10.8) Red Blood Count 4.70 10^6/uL (4.0-5.20) Hemoglobin 12.9 g/dL (12.2-16.2) Hematocrit 38.4 % (36.0-46.0) Mean Corpuscular Volume 81.8 fL (80.0-100.0) Mean Corpuscular Hemoglobin 27.4 pg (28.0-32.0) Mean Corpuscular Hemoglobin Concent 33.5 g/dL (32.0-36.0) Red Cell Distribution Width 15.7 % (11.8-14.3) Platelet Count 302 10^3/uL (140-450) Mean Platelet Volume 9.9 fL (6.9-10.8) Neutrophils (%) (Auto) 56.2 % (37.0-80.0) Lymphocytes (%) (Auto) 30.6 % (10.0-50.0) Monocytes (%) (Auto) 9.4 % (0.0-12.0) Eosinophils (%) (Auto) 3.3 % (0.0-7.0) Basophils (%) (Auto) 0.5 % (0.0-2.0) Neutrophils # (Auto) 4.7 10 ^3/uL (1.6-8.6) Lymphocytes # (Auto) 2.6 10 ^3/uL (0.4-5.4) Monocytes # (Auto) 0.8 10 ^3/uL (0-1.3) Eosinophils # (Auto) 0.3 10 ^3/uL (0-0.8) Basophils # (Auto) 0 10 ^3/uL (0-0.2) Nucleated Red Blood Cells 0.0 % Sodium Level 141 mmol/L (136-145) Potassium Level 4.3 mmol/L (3.5-5.1) Chloride Level 107 mmol/L (98-107) Carbon Dioxide Level 26 mmol/L (20-31) Anion Gap 8 (5-15) Blood Urea Nitrogen 23 mg/dL (9-23) Creatinine 1.33 mg/dL (0.550-1.02) Glomerular Filtration Rate Calc 43 mL/min (>90) BUN/Creatinine Ratio 17.3 (10.0-20.0) Serum Glucose 129 mg/dL (74-106) Calcium Level 9.3 mg/dL (8.7-10.4) Total Bilirubin 0.2 mg/dL (0.2-1.0) Aspartate Amino Transferase (AST) 17 U/L (13-40) Alanine Aminotransferase (ALT) 16 U/L (7-40) Alkaline Phosphatase 129 U/L (46-116) Total Protein 6.4 g/dL (5.7-8.2) Albumin 4.1 g/dL (3.2-4.8) Thyroid Stimulating Hormone (TSH) 0.20 uIU/mL (0.55-4.78) Free Thyroxine (T4) Calculated 1.07 ng/dL (0.89-1.76) Free Triiodothyronine (T3) pg/mL 2.83 pg/mL (2.3-4.2) Troponin I High Sensitivity 3 ng/L (</=34) Test 01/10/25 03:26 Magnesium Level 2.2 mg/dL (1.6-2.6) Other Laboratory Tests 01/11/25 05:31 Brief Hx & Hospital Course: History of Present Illness Faiza Fuentes is a 74-year-old female with past medical history hypertension, and hyperlipidemia, who came to the hospital for dizziness. Patient states she has been experiencing intermittent dizziness for about 1 week. She states it started last Thursday, and that it was mild and intermittent. She was able to continue with daily life at first. Her symptoms have progressed and worsened over last few days. Last night it became so severe she was not able to walk around her house prompting her to come to the hospital. Course of hospitalization: Patient had neurology consultation. MRI of the brain was performed which revealed no acute pathology. Patient did report having periorbital swelling/pressure, as well as right earache. Patient was started on oral antibiotic therapy with Augmentin as well as Debrox for her right ear. Patient's symptoms improved. Antihypertensives were titrated with normal blood pressure. Patient will follow up with PCP in 1-2 weeks. She will be continued on Augmentin 875 mg for additional 5 days. All questions answered. Physical examination General: Alert and Oriented x3. No acute distress. Well-nourished. Eyes: EOMI. Anicteric. HENT: Moist mucous membranes. Lungs: Clear to auscultation bilaterally. No accessory muscle use. Cardiovascular: Regular rate and rhythm. No murmur. No JVD. Abdomen: Soft, non-tender and non-distended. No palpable masses. Extremities: No edema. Non-tender. Skin: No rashes or lesions. Warm. Neurologic: No focal neurological deficits. CN II-XII grossly intact, but not individually tested. Psychiatric: Cooperative. Appropriate mood and affect. Total time spent with patient discussing and formulating plan of care: 35 minutes. This medical document was created using an electronic medical record system with [employer] dictation system. Although this document has been carefully reviewed, there may still be some phonetic and typographical errors. These areas are purely typographical due to imperfections of the software programs, and do not reflect any compromise in the patient's medical care. Consults/Reason for consult Neurology: Rule out CVA Condition at Discharge: Fair Final Diagnosis/Problems List Accelerated hypertension Secondary diagnosis: -probable BPPV -ruled out CVA -CKD stage IIIB -questionable dehydration -primary hypertension -dyslipidemia -obesity -otitis media Discharge Disposition: Home Discharge Instruct/Medications Diet: Cardiac 2g Na,low cholest Activity: No Restrictions, As Tolerated Medications: Augmentin 875mg po bid x 5 days Debrox 5 gtts to right ear bid x 3 days Scheduled Carbamide Peroxide (Debrox), 6.5 % OT BID Hctz (Hydrochlorothiazide), 1 TAB PO DAILY, (Reported) Losartan Potassium (Losartan Potassium), 1 TAB PO DAILY, (Reported) Miscellaneous Medications Aspirin (Aspirin Low Dose), 81 MG PO, (Reported) Atorvastatin Calcium (Atorvastatin Calcium), (Reported) 36 Discharge Statement: "Patient was advised to return to the ER or call 911 if any headaches, dizziness, shortness of breath, chest pain, abdominal pain, bleeding, fevers, or worsening of medical condition. Patient was counseled about treatment plan, medications, possible side effects, patientverbalized understanding. All questions were answered to the best of my ability. This discharge took greater then 30 minutes in planning, reviewing documentation, counseling the patient, and discussing with other team members." ASSESSMENT ASSESSMENT Assessment Accelerated hypertension Date of Service: Jan 13, 2025 Billing Provider: EDWAR DELVALLE NP Common Visit Codes: [id number]/OBS DISCH DAY >30min EDWAR DELVALLE NP Jan 13, 2025 14:00
== END 2025-01-13 20:02 | disposition home or self-care (01) | DRG 641 ==
LOC: ER 02:55 → EDBD 02:55 → OVERFLOW 07:25 → TELE-WESTW 22:00
PROVIDERS: ADMIT Nurse Practitioner Acute Care; ATTEND Nurse Practitioner Acute Care
DX: E86.0 Dehydration (principal); N17.9 Acute kidney failure, unspecified; H81.13 Benign paroxysmal vertigo, bilateral; M54.18 Radiculopathy, sacral and sacrococcygeal region; E78.5 Hyperlipidemia, unspecified; E11.22 Type 2 diabetes mellitus with diabetic chronic kidney disease; E78.00 Pure hypercholesterolemia, unspecified; I12.9 Hypertensive chronic kidney disease with stage 1 through stage 4 chronic kidney disease, or unspecified chronic kidney disease; F17.210 Nicotine dependence, cigarettes, uncomplicated; G89.29 Other chronic pain; E66.9 Obesity, unspecified; N18.32 Chronic kidney disease, stage 3b; H66.93 Otitis media, unspecified, bilateral; Z83.3 Family history of diabetes mellitus; Z82.49 Family history of ischemic heart disease and other diseases of the circulatory system; Z91.81 History of falling; Z79.899 Other long term (current) drug therapy; Z68.32 Body mass index [BMI] 32.0-32.9, adult
CPT/HCPCS: 36415; 70450; 70551; 80053; 81001; 82962; 83735; 84439; 84443; 84481; 84484; 85025; 93005; 97110; 97116; 97163; 97530; 99291; G0378